=== PATIENT | male | born 1970 | race African-American/Black ===

== ENCOUNTER 2016-09-21 14:37 | Emergency (ER) | payer SELFPAY ==
[~2016-09-21] VITALS: Ht 193 cm; Wt 106.0 kg
[2016-09-21 14:39] VITALS: BP 148/89; PULSE 81; RESP 18; TEMP 98.3; O2SAT 97
[2016-09-21] MEDS ORDERED: AMBI5TAB PO (14:54)
[2016-09-21] MEDS ORDERED: LIDOCAINE 1%/EPINEPHrine 1:100,000 SOLN 20 ML VIAL ONE (15:03)
[2016-09-21] MEDS ORDERED: LIDOCAINE 1%/EPINEPHrine 1:100,000 SOLN 20 ML VIAL INFIL ONE (15:15)
--- NOTE | 2016-09-21 15:34 | RADRPT ---
EXAM DATE/TIME: 09/21/2016 15:07 [place] COMPARISON: No previous studies available for comparison. INDICATIONS : Glass broke and cut medial side of left lower leg just below usp down the leg. R/o foreign body. MEDICAL HISTORY : None. SURGICAL HISTORY : None. ENCOUNTER: Initial ACUITY: 1 day PAIN SCORE: 5/10 LOCATION: Left lower leg FINDINGS: Two views of the left leg demonstrate no fracture or dislocation. Mineralization is within normal schulz its. No soft tissue abnormality or radiopaque foreign body is identified. CONCLUSION: No radiopaque foreign body is visualized. Joaquin Serna MD on September 21, 2016 at 15:32 Board Certified Radiologist. This report was verified electronically.
--- NOTE | 2016-09-21 15:55 | PD ---
HPI Chief Complaint: Laceration/Skin Injury Time Seen by Provider: 15:00 Travel History International Travel<30 days: No Contact w/Intl Traveler<30days: No Traveled to known affect area: No History of Present Illness HPI 46-year-old male presents emergency department for evaluation of laceration to left lower extremity. Patient reports that he was at [facility] when a glass jaw or fell hitting the ground and a sharp piece cut his left anterior lyon. He denies numbness/tingling/weakness in the extremity. The bleeding is well- controlled. His tetanus immunization is up-to-date. [facility] Past Medical History Medical History: Denies Significant Hx Tetanus Vaccination: Unknown Influenza Vaccination: No Past Surgical History Other Surgery: Yes (Parotid) Social History Alcohol Use: Yes ("Saturday'") Tobacco Use: Yes (Cigars occ.) Substance Use: No Allergies-Medications (Allergen,Severity, Reaction): Coded Allergies: No Known Allergies (Unverified , 09/21/16) Reported Meds & Prescriptions Reported Meds & Active Scripts Active Reported Ambien (Zolpidem Tartrate) 5 Mg Tab 5 Mg PO HS PRN Review of Systems Except as stated in HPI: all other systems reviewed are Neg General / Constitutional: No: Fever Eyes: No: Visual changes HENT: No: Headaches Cardiovascular: No: Chest Pain or Discomfort Respiratory: No: Shortness of Breath Gastrointestinal: No: Abdominal Pain Physical Exam Narrative GENERAL: Well-nourished, well-developed patient. SKIN: Focused skin assessment warm/dry. 7 cm laceration left anterior lyon. No foreign body visualized. No tendon or vascular injury. HEAD: Normocephalic. EYES: No scleral icterus. No injection or drainage. NECK: Supple, trachea midline. No JVD or lymphadenopathy. CARDIOVASCULAR: Regular rate and rhythm without murmurs, gallops, or rubs. RESPIRATORY: Breath sounds equal bilaterally. No accessory muscle use. GASTROINTESTINAL: Abdomen soft, non-tender, nondistended. MUSCULOSKELETAL: No cyanosis, or edema. 7 cm laceration left anterior lyon. No foreign body visualized. No tendon or vascular injury. 2+ distal pulses. BACK: Nontender without obvious deformity. No CVA tenderness. Data Data Last Documented VS Vital Signs Date Time Temp Pulse Resp B/P Pulse Ox O2 Delivery O2 Flow Rate FiO2 7/21/17 14:39 98.3 81 18 148/89 97 Orders Tibia/Fibula (Ap/Lat) (09/21/16 ) Lidocai-Epi 1%-1:100,000 Inj (Xylocaine- (09/21/16 15:03) Lidocai-Epi 1%-1:100,000 Inj (Xylocaine- (09/21/16 15:15) MDM Medical Decision Making Medical Screen Exam Complete: Yes Emergency Medical Condition: Yes Differential Diagnosis Laceration, rule out retained foreign body, contusion Narrative Course 46-year-old male presents emergency department for evaluation of laceration to left lower extremity caused by broken glass. Patient has a 7 cm laceration to the left anterior lyon. No foreign body visualized. The extremity is neurovascularly intact. The wound was sutured. Patient tolerated procedure well. Tetanus immunization up-to-date. Return precautions and suture removal date discussed with patient. Procedures Procedure Narrative LACERATION LOCATION: Left lower extremity LENGTH: 7 centimeters NUMBER OF STITCHES/DARLENE: [10] REPAIR: The area of the laceration was prepped with Betadine and sterilely draped. The laceration was infiltrated with 1% lidocaine with epi. The wound was copiously irrigated and explored without evidence of foreign body, tendon injury or neurovascular injury. The wound was closed using 4-0 Ethilon. This was a angle layer repair. A sterile dressing was applied. The patient was advised to keep the dressing clean and dry. Patient tolerated the procedure well. Diagnosis Primary Impression: Laceration of left lower extremity Qualified Code: S81.812A - Laceration of left lower extremity, initial encounter Referrals: Primary Care Physician Additional Instructions: Do not submerge the wound in water. Sutures need to be removed and 10-14 days. Return to the emergency department if you have increasing pain, swelling, drainage from the site. Scripts Meloxicam 15 Mg Tab15 Mg PO DAILY #20 TAB Ref 0 Prov:Beena Hernandez 09/21/16 Disposition: 01 DISCHARGE HOME Condition: Stable Beena Hernandez Sep 21, 2016 15:55
[2016-09-21] MEDS ORDERED: MELO-1 PO (16:07)
== END 2016-09-21 16:18 | disposition home or self-care (01) ==
LOC: PHEFT 14:37
DX: S81.812A Laceration without foreign body, left lower leg, initial encounter (principal); W25.XXXA Contact with sharp glass, initial encounter; Y92.512 Supermarket, store or market as the place of occurrence of the external cause
CPT/HCPCS: 12002; 73590